=== PATIENT | male | born 1960 | race American Indian/Alaskan Native ===

== ENCOUNTER 2018-03-26 07:12 | Day surgery (SDC) | payer BC ==
[2018-03-24 11:04] VITALS: BMI 35.2
[2018-03-26] MEDS ORDERED: ceFAZolin IV 1 gm in Dextrose 1 GM/50 ML BAG IVPB ONE (08:56)
[2018-03-26] MEDS ORDERED: Lidocaine Hydrochloride 0 ML INJ ONE (08:57)
[2018-03-26] MEDS ORDERED: HEPARIN-NS 5,000 UNITS/500 ML 5,000 UNIT/500 ML BAG IV ONE (08:57)
[2018-03-26] MEDS ORDERED: Midazolam 2 MG/2 ML VIAL ONE (09:13)
[2018-03-26] MEDS ORDERED: Propofol 10 mg/ml Inj (20 ML) ONE (09:14)
[2018-03-26] MEDS ORDERED: HYDROmorphone 0.5 mg/0.5 ml ISec IVP PRN (10:50)
[2018-03-26] MEDS ORDERED: Oxycodone/Acetaminophen 5/325 mg Tab PO PRN (10:51)
--- NOTE | 2018-03-26 10:51 | PCM.SURG1 ---
Surgeon's Initial Post Op Note - Surgeon's Notes Surgeon: Teofilo Mae MD Biomedical Repair Technician: Zaria Gamez PGY-2; Nikole Joel OMS-3 Pre-Operative Diagnosis: end stage renal disease requiring dialysis Operative Findings: see op report Post-Operative Diagnosis: end stage renal disease requiring dialysis Operation Performed: Left UE AV fistula creation Specimen/Specimens Removed: none Estimated Blood Loss: EBL {In ML}: 20 Blood Products Given: N/A Drains Used: No Drains Post-Op Condition: Good Date of Surgery/Procedure: 03/26/18 Time of Surgery/Procedure: 10:50
[2018-03-26 14:02] VITALS: RESP 16
[2018-03-26 15:54] VITALS: BP 151/77; PULSE 82; TEMP 98.6; O2SAT 97
--- NOTE | 2018-03-26 20:06 | OP ---
PROCEDURE DATE: 03/26/2018 PREOPERATIVE DIAGNOSIS: Renal failure. POSTOPERATIVE DIAGNOSIS: Renal failure. PROCEDURE CARRIED OUT: Brachio-brachial fistula, left elbow. SURGEON: Teofilo Mae Jr., MD NATURAL RESOURCES PROFESSOR: Dr. Gamez. ANESTHESIA ADMINISTERED BY: Mr. Chan. INDICATIONS: The patient is a 58-year-old male with renal insufficiency who soon required dialysis. DESCRIPTION OF PROCEDURE: There was no good cephalic vein. There was no good basilic vein. In the midportion of the forearm, there was a fairly descent sized basilic vein but it did not correlate well with the portion of the elbow. Because of this, I did not do a forearm transposition, and so we created a brachio-brachial fistula using loupe magnification and heparin anticoagulation. At the end of the procedure, there was good flow in both directions, and there was a good pulse at the wrist and good flow through the fistula. Blood loss for the procedure was 20 mL. Operation carried out, brachio-brachial fistula, left elbow. Teofilo Mae Jr., MD cc: Dr. Malhotra.
== END 2018-03-26 14:35 | disposition home or self-care (01) ==
LOC: C.SDS 07:12
PROVIDERS: ATTEND Surgery Vascular Surgery
DX: N18.6 End stage renal disease (principal)
CPT/HCPCS: 36830; 82948; J0690; J1644; J2250; J2704; J3010

== ENCOUNTER 2018-09-23 08:08 | Outpatient (CLI) | payer BC | END 2018-09-23 08:09 | disposition home or self-care (01) | LOC: C.USIC 08:09 | DX: B18.2 Chronic viral hepatitis C (principal) ==

== ENCOUNTER 2018-09-24 08:50 | Day surgery (SDC) | payer BC ==
[2018-09-24 09:41] VITALS: BMI 38.2
[2018-09-24] MEDS ORDERED: Propofol 10 mg/ml Inj (20 ML) ONE (11:59)
[2018-09-24] MEDS: Lactated Ringer's 500 ML IV ONE (12:26)
[2018-09-24 14:21] VITALS: BP 161/69; PULSE 81; RESP 21; TEMP 97.9; O2SAT 98
== END 2018-09-24 15:15 | disposition home or self-care (01) ==
LOC: C.ENDO 08:50
PROVIDERS: ATTEND Internal Medicine Gastroenterology
DX: Z12.11 Encounter for screening for malignant neoplasm of colon (principal); D12.3 Benign neoplasm of transverse colon; K64.1 Second degree hemorrhoids; I13.0 Hypertensive heart and chronic kidney disease with heart failure and stage 1 through stage 4 chronic kidney disease, or unspecified chronic kidney disease; E11.22 Type 2 diabetes mellitus with diabetic chronic kidney disease; N18.9 Chronic kidney disease, unspecified; I50.9 Heart failure, unspecified; E78.5 Hyperlipidemia, unspecified
CPT/HCPCS: 36415; 45385; 82105; 82948; 86664; 86665; 87522; 87902; 88305; J2704; J7120